=== PATIENT | male | born 1945 | race Caucasian/White ===

== ENCOUNTER 2018-10-14 23:08 | Inpatient (IN) | payer BC ==
[~2018-10-14] VITALS: Ht 180.3 cm; Wt 88.9 kg
[2018-10-14 23:09] VITALS: BP_SYST 141
[2018-10-14] MEDS ORDERED: NACL 0.9% 1,000 ML IV ONE (23:40)
[2018-10-15] MEDS ORDERED: ALBUTEROL SULFATE 0.083% 2.5 MG/3 ML VIAL.NEB IH ONE (00:15)
[2018-10-15] MEDS ORDERED: methylPREDNISolone SOD SUCC/PF 62.5 MG/ML VIAL IVP ONE ×2 (00:15→08:45)
[2018-10-15] MEDS ORDERED: IPRATROPIUM BROM 0.5 MG/2.5 ML VIAL.NEB (ATROVENT) IH ONE (00:15)
[2018-10-15 00:30] LABS: BASOPHILS % (AUTO) 0.5 % (0.0-2.0); HEMATOCRIT 36.9 % (36-54); HEMOGLOBIN 12.2 g/dL (14.0-18.0); LYMPHOCYTES # (AUTO) 0.9 K/uL (1.0-5.5); LYMPHOCYTES % (AUTO) 10.8 % (20.5-51.5); MEAN CORPUSCULAR HEMOGLOBIN 30 pg (27-31); MEAN CORPUSCULAR HGB CONC 33 % (32-36); MEAN CORPUSCULAR VOLUME 90 fL (79.0-98.0); MONOCYTES # (AUTO) 0.2 K/uL (0.0-1.0); MONOCYTES % (AUTO) 2.6 % (1.7-9.3); NEUTROPHILS # (AUTO) 7.3 K/uL (1.8-7.7); NEUTROPHILS % (AUTO) 86.1 % (40.0-70.0); PLATELET COUNT (AUTO) 267 K/uL (130-430); RED BLOOD CELL COUNT(AUTO) 4.09 MIL/uL (4.2-6.2); RED CELL DISTRIBUTION WIDTH 15.5 % (9.0-15.0); WHITE BLOOD COUNT (AUTO) 8.4 K/uL (4.8-10.8)
[2018-10-15 00:43] LABS: PROTHROMBIN TIME 9.8 SECS (9.5-12.5)
[2018-10-15 00:54] LABS: ANION GAP 13 (5-15); CALCIUM 9.4 mg/dL (8.4-11.0); CHLORIDE 103 mmol/L (98-107); CREATININE 2.13 mg/dL (0.55-1.30); GLUCOSE 231 mg/dL (70-99); POTASSIUM 4.3 mmol/L (3.5-5.1); SODIUM SERUM 140 mmol/L (136-145); UREA NITROGEN, BLOOD 31 mg/dL (8-21)
[2018-10-15 01:01] LABS: ALANINE AMINOTRANSFERASE 15 U/L (12-78); ALBUMIN 3.2 g/dL (3.4-4.8); AMYLASE 30 U/L (0-100); ASPARTATE AMINOTRANSFERASE 18 U/L (10-37); LIPASE 165 U/L (73-393); TOTAL BILIRUBIN 0.3 mg/dL (0.0-1.0)
[2018-10-15 01:28] LABS: BILIRUBIN,URINE NEGATIVE (NEGATIVE); BLOOD, URINE NEGATIVE (NEGATIVE); CLARITY/URINE CLEAR (CLEAR); COLOR,URINE YELLOW (YELLOW); GLUCOSE,URINE NEGATIVE (NEGATIVE); KETONES,URINE TRACE (NEGATIVE); LEUKOCYTE ESTERASE ,URINE 1+ (NEGATIVE); NITRITE, URINE NEGATIVE (NEGATIVE); PROTEIN URINE 2+ (NEGATIVE); UROBILINOGEN,URINE 0.2 (0.2-1.0)
[2018-10-15 01:51] LABS: BACTERIA,URINE MANY /HPF (None Seen); RBC,URINE 0-3 /HPF (0-3); URINE AMORPHOUS PHOSPHATES 1+ /HPF (None Seen); WBC,URINE 20-50 /HPF (0-3); YEAST,URINE None Seen /HPF (None Seen)
[2018-10-15 01:52] LABS: MUCUS,URINE None Seen /LPF (None Seen)
[2018-10-15] MEDS ORDERED: LISI40TA4 PO (02:10)
[2018-10-15] MEDS ORDERED: DILT240C91 PO (02:10)
[2018-10-15] MEDS ORDERED: ATEN50TA PO (02:10)
[2018-10-15] MEDS ORDERED: HYDR100T25 PO (02:10)
[2018-10-15] MEDS ORDERED: METF1000 PO (02:10)
[2018-10-15] MEDS ORDERED: LOVA40TA75 PO (02:10)
[2018-10-15] MEDS ORDERED: TEMA15CA5 PO (02:10)
[2018-10-15] MEDS ORDERED: CARB-111 PO (02:10)
[2018-10-15] MEDS ORDERED: GLIP5TAB26 PO (02:10)
[2018-10-15] MEDS ORDERED: IBUP-1969 PO (02:10)
[2018-10-15 03:33] VITALS: BP_SYST 159
[2018-10-15] MEDS ORDERED: TEMAZEPAM 15 MG CAPSULE PO ONE (04:45)
[2018-10-15] MEDS ORDERED: ONDANSETRON HCL 4 MG/2 ML VIAL IVP PRN (05:30)
[2018-10-15 05:56] VITALS: BP_SYST 159
[2018-10-15] MEDS ORDERED: cefTRIAXone 1 GM IVPB PREMIX 50 ML IV ONE (06:17)
[2018-10-15] MEDS ORDERED: AZITHROMYCIN 500 MG/VIAL (ZITHROMAX) IV ONE (06:17)
[2018-10-15] MEDS: AZITHROMYCIN 500 MG in NS 250 ML IV SCH (06:42)
[2018-10-15] MEDS: glipiZIDE XL 5 MG TAB ( GLUCOTROL XL) PO SCH ×2 (06:45→17:17)
[2018-10-15] MEDS: INSULIN REGULAR, HUMAN 100 UNITS/ML, 10 ML VIAL (novoLIN R) SUBCUT PRN ×4 (06:48→21:27)
[2018-10-15 08:30] VITALS: BP_SYST 140
[2018-10-15] MEDS ORDERED: TEMAZEPAM 15 MG CAPSULE PO SCH (09:00)
[2018-10-15] MEDS: cefTRIAXone 1 GM IVPB PREMIX 50 ML IV SCH (09:03)
[2018-10-15] MEDS: hydrALAZINE HCL 25 MG TABLET PO SCH ×2 (09:09→21:21)
[2018-10-15] MEDS: LISINOPRIL 20 MG TABLET PO SCH (09:09)
[2018-10-15] MEDS: DILTIAZEM HCL 240 MG CAP.SR.24H PO SCH ×2 (09:10→21:21)
[2018-10-15] MEDS: ATENOLOL 50 MG TABLET (TENORMIN) PO SCH (09:10)
[2018-10-15 10:33] LABS: BASOPHILS % (AUTO) 0.2 % (0.0-2.0); HEMATOCRIT 37.6 % (36-54); HEMOGLOBIN 12.1 g/dL (14.0-18.0); LYMPHOCYTES # (AUTO) 0.6 K/uL (1.0-5.5); LYMPHOCYTES % (AUTO) 6.3 % (20.5-51.5); MEAN CORPUSCULAR HEMOGLOBIN 29 pg (27-31); MEAN CORPUSCULAR HGB CONC 32 % (32-36); MEAN CORPUSCULAR VOLUME 90 fL (79.0-98.0); MONOCYTES % (AUTO) 0.4 % (1.7-9.3); NEUTROPHILS # (AUTO) 8.4 K/uL (1.8-7.7); NEUTROPHILS % (AUTO) 93.1 % (40.0-70.0); PLATELET COUNT (AUTO) 261 K/uL (130-430); RED BLOOD CELL COUNT(AUTO) 4.19 MIL/uL (4.2-6.2); RED CELL DISTRIBUTION WIDTH 15.9 % (9.0-15.0)
[2018-10-15] MEDS: ALBUTEROL SULFATE 0.083% 2.5 MG/3 ML VIAL.NEB INH PRN ×4 (10:33→19:40)
[2018-10-15 10:44] LABS: ANION GAP 12 (5-15); CALCIUM 8.9 mg/dL (8.4-11.0); CHLORIDE 102 mmol/L (98-107); CREATININE 2.02 mg/dL (0.55-1.30); GLUCOSE 338 mg/dL (70-99); SODIUM SERUM 138 mmol/L (136-145); UREA NITROGEN, BLOOD 29 mg/dL (8-21)
[2018-10-15 10:53] LABS: ALANINE AMINOTRANSFERASE 16 U/L (12-78); ASPARTATE AMINOTRANSFERASE 15 U/L (10-37); TOTAL BILIRUBIN 0.3 mg/dL (0.0-1.0)
[2018-10-15 12:35] VITALS: BP_SYST 143
[2018-10-15] MEDS: methylPREDNISolone SOD SUCC/PF 62.5 MG/ML VIAL IVP SCH ×2 (13:29→21:22)
[2018-10-15 16:32] VITALS: BP_SYST 139
[2018-10-15] MEDS: ATORVASTATIN 10 MG TABLET PO SCH (17:17)
[2018-10-15] MEDS ORDERED: LOVASTATIN 20 MG TABLET PO SCH (18:00)
[2018-10-15 21:01] VITALS: BP_SYST 162
[2018-10-15] MEDS: TEMAZEPAM 15 MG CAPSULE PO SCH (21:22)
[2018-10-15] MEDS ORDERED: methylPREDNISolone SOD SUCC/PF 62.5 MG/ML VIAL ONE (21:24)
[2018-10-16 00:36] VITALS: BP_SYST 134
[2018-10-16] MEDS: AZITHROMYCIN 500 MG in NS 250 ML IV SCH (05:04)
[2018-10-16] MEDS: glipiZIDE XL 5 MG TAB ( GLUCOTROL XL) PO SCH ×2 (06:02→17:15)
[2018-10-16] MEDS: methylPREDNISolone SOD SUCC/PF 62.5 MG/ML VIAL IVP SCH ×3 (06:02→22:00)
[2018-10-16] MEDS: cefTRIAXone 1 GM IVPB PREMIX 50 ML IV SCH (06:06)
[2018-10-16] MEDS: INSULIN REGULAR, HUMAN 100 UNITS/ML, 10 ML VIAL (novoLIN R) SUBCUT PRN ×4 (06:11→22:15)
[2018-10-16 07:11] LABS: BASOPHILS % (AUTO) 0.2 % (0.0-2.0); EOSINOPHILS % (AUTO) 0.2 % (0.0-4.0); HEMATOCRIT 35.6 % (36-54); LYMPHOCYTES # (AUTO) 0.7 K/uL (1.0-5.5); LYMPHOCYTES % (AUTO) 5.8 % (20.5-51.5); MEAN CORPUSCULAR HEMOGLOBIN 31 pg (27-31); MEAN CORPUSCULAR HGB CONC 34 % (32-36); MEAN CORPUSCULAR VOLUME 90 fL (79.0-98.0); MONOCYTES # (AUTO) 0.3 K/uL (0.0-1.0); MONOCYTES % (AUTO) 2.4 % (1.7-9.3); NEUTROPHILS # (AUTO) 11.5 K/uL (1.8-7.7); NEUTROPHILS % (AUTO) 91.4 % (40.0-70.0); PLATELET COUNT (AUTO) 257 K/uL (130-430); RED BLOOD CELL COUNT(AUTO) 3.94 MIL/uL (4.2-6.2); RED CELL DISTRIBUTION WIDTH 15.9 % (9.0-15.0); WHITE BLOOD COUNT (AUTO) 12.5 K/uL (4.8-10.8)
[2018-10-16 07:27] LABS: PROTHROMBIN TIME 9.9 SECS (9.5-12.5)
[2018-10-16 07:29] LABS: ANION GAP 11 (5-15); CALCIUM 8.8 mg/dL (8.4-11.0); CHLORIDE 103 mmol/L (98-107); CREATININE 1.96 mg/dL (0.55-1.30); GLUCOSE 241 mg/dL (70-99); POTASSIUM 3.9 mmol/L (3.5-5.1); SODIUM SERUM 139 mmol/L (136-145); UREA NITROGEN, BLOOD 37 mg/dL (8-21)
[2018-10-16 07:40] LABS: ALANINE AMINOTRANSFERASE 22 U/L (12-78); ALBUMIN 2.9 g/dL (3.4-4.8); ASPARTATE AMINOTRANSFERASE 16 U/L (10-37); TOTAL BILIRUBIN 0.2 mg/dL (0.0-1.0)
[2018-10-16 08:00] VITALS: BP_SYST 148
[2018-10-16 08:15] LABS: TOTAL IRON BIND. CAPACITY 310 ug/dL (250-450)
[2018-10-16 08:27] LABS: THYROID STIMULATING HORMONE 0.16 uIu/mL (0.34-4.82)
[2018-10-16] MEDS: DILTIAZEM HCL 240 MG CAP.SR.24H PO SCH ×2 (10:21→21:00)
[2018-10-16] MEDS: LISINOPRIL 20 MG TABLET PO SCH (10:22)
[2018-10-16] MEDS: ATENOLOL 50 MG TABLET (TENORMIN) PO SCH (10:23)
[2018-10-16] MEDS: hydrALAZINE HCL 25 MG TABLET PO SCH ×2 (10:23→22:01)
[2018-10-16] MEDS ORDERED: ALBUTEROL SULFATE 0.083% 2.5 MG/3 ML VIAL.NEB INH PRN (10:45)
[2018-10-16] MEDS ORDERED: ALBUTEROL SULFATE 0.083% 2.5 MG/3 ML VIAL.NEB INH ONE (10:53)
[2018-10-16] MEDS ORDERED: IPRATROPIUM BROM 0.5 MG/2.5 ML VIAL.NEB (ATROVENT) INH ONE (10:53)
[2018-10-16 11:23] VITALS: BP_SYST 129
[2018-10-16 11:25] VITALS: BP_SYST 158
[2018-10-16 14:38] LABS: SOURCE/TYPE ,BODY FLUID THORACENTESIS
[2018-10-16 14:39] LABS: APPEARANCE,SPUN,BODY FLUID CLEAR (CLEAR); BF APPEARANCE UNSPUN CLEAR (CLEAR); BODY FLUID COLOR YELLOW (LT YELLOW); BODY FLUID SOURCE/ TYPE PLEURAL; BODY FLUID TOTAL VOLUME 1000 mL; MONOCYTES,BODY FLUID 40 %; NEUTROPHIL, BODY FLUID 60 %; RBC, BODY FLUID 666 /uL; WBC, BODY FLUID 164 /uL
[2018-10-16] MEDS: ALBUTEROL SULFATE 0.083% 2.5 MG/3 ML VIAL.NEB INH SCH ×2 (15:18→19:45)
[2018-10-16] MEDS: IPRATROPIUM BROM 0.5 MG/2.5 ML VIAL.NEB (ATROVENT) INH SCH ×2 (15:19→19:45)
[2018-10-16 15:46] VITALS: BP_SYST 153
[2018-10-16 16:58] LABS: BODY FLUID GLUCOSE 309 mg/dL
[2018-10-16 17:00] LABS: BODY FLUID TOTAL PROTEIN 2.5 g/dL
[2018-10-16] MEDS: ATORVASTATIN 10 MG TABLET PO SCH (17:22)
[2018-10-16 21:54] VITALS: BP_SYST 164
[2018-10-16] MEDS: TEMAZEPAM 15 MG CAPSULE PO SCH (22:02)
[2018-10-17] MEDS: ALBUTEROL SULFATE 0.083% 2.5 MG/3 ML VIAL.NEB INH SCH ×4 (00:40→19:49)
[2018-10-17] MEDS: IPRATROPIUM BROM 0.5 MG/2.5 ML VIAL.NEB (ATROVENT) INH SCH ×4 (00:40→19:49)
[2018-10-17 01:19] VITALS: BP_SYST 151
[2018-10-17] MEDS: AZITHROMYCIN 500 MG in NS 250 ML IV SCH (04:42)
[2018-10-17] MEDS: methylPREDNISolone SOD SUCC/PF 62.5 MG/ML VIAL IVP SCH (06:21)
[2018-10-17] MEDS: glipiZIDE XL 5 MG TAB ( GLUCOTROL XL) PO SCH ×2 (06:21→17:07)
[2018-10-17] MEDS: cefTRIAXone 1 GM IVPB PREMIX 50 ML IV SCH (06:21)
[2018-10-17] MEDS: INSULIN REGULAR, HUMAN 100 UNITS/ML, 10 ML VIAL (novoLIN R) SUBCUT PRN ×4 (06:27→20:39)
[2018-10-17 06:51] LABS: HEMATOCRIT 34.1 % (36-54); HEMOGLOBIN 11.5 g/dL (14.0-18.0); LYMPHOCYTES # (AUTO) 0.5 K/uL (1.0-5.5); LYMPHOCYTES % (AUTO) 4.9 % (20.5-51.5); MEAN CORPUSCULAR HEMOGLOBIN 31 pg (27-31); MEAN CORPUSCULAR HGB CONC 34 % (32-36); MEAN CORPUSCULAR VOLUME 90 fL (79.0-98.0); MONOCYTES # (AUTO) 0.2 K/uL (0.0-1.0); MONOCYTES % (AUTO) 1.9 % (1.7-9.3); NEUTROPHILS # (AUTO) 10.3 K/uL (1.8-7.7); NEUTROPHILS % (AUTO) 93.2 % (40.0-70.0); PLATELET COUNT (AUTO) 245 K/uL (130-430); RED BLOOD CELL COUNT(AUTO) 3.79 MIL/uL (4.2-6.2)
[2018-10-17 07:07] LABS: ALANINE AMINOTRANSFERASE 26 U/L (12-78); ALBUMIN 2.6 g/dL (3.4-4.8); ANION GAP 7 (5-15); ASPARTATE AMINOTRANSFERASE 13 U/L (10-37); CALCIUM 8.6 mg/dL (8.4-11.0); CHLORIDE 103 mmol/L (98-107); CREATININE 1.82 mg/dL (0.55-1.30); GLUCOSE 233 mg/dL (70-99); LACTATE DEHYDROGENASE 147 U/L (85-227); POTASSIUM 3.8 mmol/L (3.5-5.1); SODIUM SERUM 135 mmol/L (136-145); TOTAL BILIRUBIN 0.3 mg/dL (0.0-1.0); UREA NITROGEN, BLOOD 45 mg/dL (8-21)
[2018-10-17 08:03] VITALS: BP_SYST 134
[2018-10-17] MEDS: DILTIAZEM HCL 240 MG CAP.SR.24H PO SCH ×2 (08:12→20:33)
[2018-10-17] MEDS: ATENOLOL 50 MG TABLET (TENORMIN) PO SCH (08:12)
[2018-10-17] MEDS: LISINOPRIL 20 MG TABLET PO SCH (08:13)
[2018-10-17] MEDS: hydrALAZINE HCL 25 MG TABLET PO SCH ×2 (08:14→20:34)
[2018-10-17] MEDS ORDERED: PREDNISONE 20 MG TABLET PO ONE (10:00)
[2018-10-17] MEDS ORDERED: FUROSEMIDE 20 MG/2 ML VIAL IVP ONE (10:00)
[2018-10-17 12:20] VITALS: BP_SYST 144
[2018-10-17 16:23] VITALS: BP_SYST 152
[2018-10-17] MEDS: ATORVASTATIN 10 MG TABLET PO SCH (17:07)
[2018-10-17] MEDS: PREDNISONE 20 MG TABLET PO SCH (17:07)
[2018-10-17 20:19] VITALS: BP_SYST 159
[2018-10-17] MEDS: TEMAZEPAM 15 MG CAPSULE PO SCH (20:32)
[2018-10-18 01:13] VITALS: BP_SYST 151
[2018-10-18] MEDS: IPRATROPIUM BROM 0.5 MG/2.5 ML VIAL.NEB (ATROVENT) INH SCH ×2 (01:13→07:38)
[2018-10-18] MEDS: ALBUTEROL SULFATE 0.083% 2.5 MG/3 ML VIAL.NEB INH SCH ×2 (01:13→07:38)
[2018-10-18] MEDS: AZITHROMYCIN 500 MG in NS 250 ML IV SCH (04:36)
[2018-10-18] MEDS: cefTRIAXone 1 GM IVPB PREMIX 50 ML IV SCH (06:38)
[2018-10-18] MEDS: glipiZIDE XL 5 MG TAB ( GLUCOTROL XL) PO SCH (06:38)
[2018-10-18] MEDS: INSULIN REGULAR, HUMAN 100 UNITS/ML, 10 ML VIAL (novoLIN R) SUBCUT PRN ×2 (06:40→11:31)
[2018-10-18 07:18] LABS: HEMATOCRIT 35.9 % (36-54); HEMOGLOBIN 11.7 g/dL (14.0-18.0); LYMPHOCYTES # (AUTO) 0.4 K/uL (1.0-5.5); LYMPHOCYTES % (AUTO) 4.1 % (20.5-51.5); MEAN CORPUSCULAR HEMOGLOBIN 29 pg (27-31); MEAN CORPUSCULAR HGB CONC 33 % (32-36); MEAN CORPUSCULAR VOLUME 89 fL (79.0-98.0); MONOCYTES # (AUTO) 0.7 K/uL (0.0-1.0); MONOCYTES % (AUTO) 6.6 % (1.7-9.3); NEUTROPHILS # (AUTO) 8.8 K/uL (1.8-7.7); NEUTROPHILS % (AUTO) 89.3 % (40.0-70.0); PLATELET COUNT (AUTO) 226 K/uL (130-430); RED BLOOD CELL COUNT(AUTO) 4.05 MIL/uL (4.2-6.2); WHITE BLOOD COUNT (AUTO) 9.9 K/uL (4.8-10.8)
[2018-10-18 07:21] LABS: ANION GAP 10 (5-15); CALCIUM 8.3 mg/dL (8.4-11.0); CHLORIDE 103 mmol/L (98-107); CREATININE 1.97 mg/dL (0.55-1.30); GLUCOSE 292 mg/dL (70-99); POTASSIUM 3.5 mmol/L (3.5-5.1); SODIUM SERUM 139 mmol/L (136-145); UREA NITROGEN, BLOOD 51 mg/dL (8-21)
[2018-10-18 08:00] VITALS: BP_SYST 141
[2018-10-18 08:51] LABS: FOLATE (FOLIC ACID) >20.0 ng/mL (>3.0)
[2018-10-18] MEDS: PREDNISONE 20 MG TABLET PO SCH (08:55)
[2018-10-18] MEDS: LISINOPRIL 20 MG TABLET PO SCH (08:56)
[2018-10-18] MEDS: hydrALAZINE HCL 25 MG TABLET PO SCH (08:56)
[2018-10-18] MEDS: ATENOLOL 50 MG TABLET (TENORMIN) PO SCH (08:57)
[2018-10-18 10:23] LABS: HAPTOGLOBIN 278 mg/dL (34-200)
[2018-10-18] MEDS: DILTIAZEM HCL 240 MG CAP.SR.24H PO SCH (10:54)
[2018-10-18 10:58] VITALS: BP_SYST 128
[2018-10-18] MEDS ORDERED: PRED20TA PO (11:06)
[2018-10-18] MEDS ORDERED: AUG875 PO (11:08)
[2018-10-18 11:27] VITALS: BP_SYST 128
== END 2018-10-18 14:30 | disposition home or self-care (01) | DRG 186 ==
LOC: SED 23:08 → STU 10-15 02:47
PROVIDERS: ADMIT Internal Medicine; ATTEND Internal Medicine
PROC: 5A09457 Assistance with Respiratory Ventilation, 24-96 Consecutive Hours, Continuous Positive Airway Pressure (ICD-10-PCS; 2018-10-15)
PROC: 0W993ZZ Drainage of Right Pleural Cavity, Percutaneous Approach (ICD-10-PCS; principal; 2018-10-16)
PROC: 5A09357 Assistance with Respiratory Ventilation, Less than 24 Consecutive Hours, Continuous Positive Airway Pressure (ICD-10-PCS; 2018-10-16)
PROC: 5A09357 Assistance with Respiratory Ventilation, Less than 24 Consecutive Hours, Continuous Positive Airway Pressure (ICD-10-PCS; 2018-10-17)
DX: J90 Pleural effusion, not elsewhere classified (principal); J96.21 Acute and chronic respiratory failure with hypoxia; I13.0 Hypertensive heart and chronic kidney disease with heart failure and stage 1 through stage 4 chronic kidney disease, or unspecified chronic kidney disease; J43.2 Centrilobular emphysema; K74.60 Unspecified cirrhosis of liver; N18.9 Chronic kidney disease, unspecified; K76.9 Liver disease, unspecified; F40.240 Claustrophobia; I50.9 Heart failure, unspecified; G47.33 Obstructive sleep apnea (adult) (pediatric); E11.22 Type 2 diabetes mellitus with diabetic chronic kidney disease; D64.9 Anemia, unspecified; N28.1 Cyst of kidney, acquired; Z87.891 Personal history of nicotine dependence; Z99.81 Dependence on supplemental oxygen; Z79.899 Other long term (current) drug therapy
CPT/HCPCS: 32555; 36415; 36600; 71045; 71250-TC; 80048; 80053; 81000-TC; 82150-TC; 82550-TC; 82607; 82746; 82803-TC; 82947-TC; 82962; 83010; 83540-TC; 83550-TC; 83605; 83615-TC; 83690-TC; 83880; 84157-TC; 84443-TC; 84484; 85025; 85044-TC; 85379; 85610-TC; 85730-TC; 87040-TC; 87070-TC; 87086; 87101; 87116; 88108; 88305; 88313; 89051-TC; 89060-TC; 93005; 94640; 94660; 94760; 96361; 96374; 99285; C1729; G0378; J0456; J0696; J1815; J1940; J2930; J7050; J7512; J7613